=== PATIENT | female | born 1995 | race Caucasian/White ===

== ENCOUNTER 2022-04-26 05:31 | Inpatient (IN) ==
[2022-04-26] MEDS ORDERED: LACTATED RINGERS 250 ML IV ONE (05:54)
[2022-04-26] MEDS ORDERED: TRANEXAMIC ACID 1,000 MG in SODIUM CHLORIDE 0.9% 100 ML IV PRN (05:54)
[2022-04-26] MEDS ORDERED: METHYLERGONOVINE 0.2 MG/1 ML AMP IM PRN (05:54)
[2022-04-26] MEDS ORDERED: OXYTOCIN/LR 20 UNIT/1,000 ML BAG IV ONE ×3 (05:54→09:14)
[2022-04-26] MEDS ORDERED: ONDANSETRON 4 MG/2 ML VIAL IV PRN ×2 (05:54→09:14)
[2022-04-26] MEDS ORDERED: CARBOPROST TROMETHAMINE 250 MCG/ML AMP IM PRN (05:54)
[2022-04-26] MEDS ORDERED: miSOPROStoL 200 MCG TABLET RECTAL PRN (05:54)
[2022-04-26] MEDS ORDERED: CITRIC ACID/SODIUM CITRATE 30 ML UDCUP PO ONE (05:54)
[2022-04-26] MEDS ORDERED: FAMOTIDINE 20 MG/2 ML VIAL IV ONE (05:54)
[2022-04-26] MEDS ORDERED: LACTATED RINGERS 1,000 ML IV SCH ×2 (06:00)
[2022-04-26 06:30] LABS: Basophils % 0.3 % (0.0-0.8); Eosinophils # 0.1 10*3/uL (0.0-0.87); Eosinophils % 0.7 % (0.00-10.9); Hemoglobin 12.6 GM/DL (12.0-16.0); Immature Granulocytes % 0.9 %; Immature Granulocytes Absolute 0.08 #; Lymphocytes % 21.8 % (21.3-54.2); Mean Corpuscular Volume 85.3 FL (87-102); Mean Platelet Volume 10.5 FL (9.6-12.0); Monocytes # 0.9 10*3/uL (0.11-0.8); Monocytes % 9.4 % (1.7-12.7); Neutrophils % 66.9 % (38.7-73.9); Platelet Count 234 T/CUMM (130-400); Red Blood Count 4.22 MC/CUMM (3.8-5.5); Red Cell Distribution Width 12.9 % (9.3-17.3); White Blood Count 9.1 T/CUMM (4-12)
[2022-04-26] MEDS ORDERED: CLINDAMYCIN INJ 900 MG/50 ML PREMIX IV ONE (06:30)
[2022-04-26] MEDS ORDERED: hydrALAZINE 20 MG/1 ML VIAL IV ONE ×3 (06:33→07:00)
[2022-04-26] MEDS ORDERED: KETOROLAC 30 MG/1 ML VIAL ONE (06:33)
[2022-04-26] MEDS ORDERED: ONDANSETRON 4 MG/2 ML VIAL ONE (06:33)
[2022-04-26] MEDS ORDERED: ACETAMINOPHEN INJ 1,000 MG/100 ML VIAL IV ONE (06:33)
[2022-04-26] MEDS ORDERED: DEXAMETHASONE 4 MG/1 ML VIAL ONE (06:33)
[2022-04-26 06:45] LABS: INR 0.8; PT Patient Result 9.3 SECS (10.1-12.1); Partial Thromboplastin Time 26.2 SECS (23.7-32.9)
[2022-04-26] MEDS ORDERED: buprenorphine HCL 0.3 MG/ML VIAL ONE (06:51)
[2022-04-26 06:52] LABS: Alanine Aminotransferase 23 U/L (13-56); Albumin 2.9 G/DL (3.4-5.0); Alkaline Phosphatase 138 U/L (45-117); Aspartate Amino Transferase 22 U/L (0-37); Bilirubin,Total < 0.39 MG/DL (0.20-1.00); Blood Urea Nitrogen 13 MG/DL (7-18); Carbon Dioxide 22 MMOL/L (21-32); Chloride 108 MMOL/L (98-107); Glucose 91 MG/DL (74-106); Osmolality,Calculated 276.5 MOS/KG (273-304); Potassium 3.6 MMOL/L (3.5-5.1); Sodium 139 MMOL/L (136-145); Uric Acid 4.8 MG/DL (2.6-6.0)
[2022-04-26] MEDS ORDERED: TRANEXAMIC ACID 1,000 MG/10 ML VIAL ONE (07:13)
[2022-04-26] MEDS ORDERED: miSOPROStoL 200 MCG TABLET ONE (07:13)
[2022-04-26] MEDS ORDERED: CARBOPROST TROMETHAMINE 250 MCG/ML AMP IM ONE (07:14)
[2022-04-26] MEDS ORDERED: SODIUM CHLORIDE 0.9% 100 ML IV ONE (07:14)
[2022-04-26] MEDS ORDERED: PHENYLEPHRINE 1 MG/10 ML SYRINGE IV ONE ×5 (07:50→08:41)
[2022-04-26] MEDS ORDERED: LACTATED RINGERS 1,000 ML IV ONE (08:00)
[2022-04-26] MEDS ORDERED: MAGNESIUM SULF RIDER 4 GM/100 ML PREMIX IV ONE (08:05)
[2022-04-26] MEDS ORDERED: MAGNESIUM SULF DRIP 40 GM/1,000 ML ML IV SCH (08:30)
[2022-04-26] MEDS ORDERED: LIDOCAINE 2% 5 ML VIAL ONE (08:34)
[2022-04-26 08:36] LABS: Bacteria,Urine Occasional /HPF (Few); Mucus,Urine Occasional /LPF (Occasional); RBC,Urine <1 /HPF (0-4)
[2022-04-26 08:37] LABS: Bilirubin,Urine Negative (Negative); Blood, Urine Negative (Negative); Glucose,Urine (UA) Negative (Negative); Ketones,Urine 80 mg/dL (Negative); Nitrite,Urine Negative (Negative); Protein,Urine Trace mg/dL (Negative); Urine Appearance Clear (Clear); Urine Color Yellow (Yellow); Urine Urobilinogen 0.2 eU/dL (<2.0)
[2022-04-26 08:39] LABS: Protein/Creatinine Ratio,Urine 0.4 RATIO
[2022-04-26 08:47] LABS: Cord Venous Blood HCO3 15.4 MMOL/L; Cord Venous Blood PCO2 56.1 MMHG; Cord Venous Blood PO2 23.1
[2022-04-26 08:48] LABS: Cord Arterial Blood HCO3 13.5 MMOL/L
[2022-04-26] MEDS ORDERED: MEASLES/MUMPS/RUBELLA VACCINE 0.5 ML VIAL SUBCUT ONE (09:14)
[2022-04-26] MEDS ORDERED: LANOLIN 50% CREAM 0.3 OZ TUBE TOP PRN (09:14)
[2022-04-26] MEDS ORDERED: BENZOCAINE 20%/MENTHOL 0.5% SPRAY 56 GM CAN TOP PRN (09:14)
[2022-04-26] MEDS ORDERED: oxyCODONE/ACETAMINOPHEN 5-325 MG TABLET PO PRN ×2 (09:14)
[2022-04-26] MEDS ORDERED: WITCH HAZEL PADS 100/JAR TOP PRN (09:14)
[2022-04-26] MEDS ORDERED: RHO(D) IMMUNE GLOBULIN 300 MCG SYRINGE IM ONE (09:14)
[2022-04-26] MEDS ORDERED: BISACODYL 10 MG SUPP RECTAL PRN (09:14)
[2022-04-26] MEDS ORDERED: ACETAMINOPHEN 325 MG TABLET PO PRN (09:14)
[2022-04-26] MEDS ORDERED: DIPH/TET/ACEL PERT BOOSTER VACCINE 0.5 ML VIAL IM ONE ×2 (09:14→09:30)
[2022-04-26] MEDS ORDERED: HYDROCORTISONE 2.5% RECTAL CREAM 30 GM TUBE TOP PRN (09:14)
[2022-04-26] MEDS: METOPROLOL SUCCINATE XL 50 MG TABLET PO SCH ×2 (11:05→20:37)
[2022-04-26] MEDS ORDERED: hydrALAZINE 20 MG/1 ML VIAL ONE (13:08)
[2022-04-26] MEDS ORDERED: ACETAMINOPHEN 500 MG TABLET PO SCH (15:00)
[2022-04-26] MEDS ORDERED: KETOROLAC 30 MG/1 ML VIAL IV SCH (15:00)
[2022-04-26] MEDS: CLINDAMYCIN INJ 900 MG/50 ML PREMIX IV SCH (19:50)
[2022-04-26] MEDS: ACETAMINOPHEN 500 MG TABLET PO SCH (22:37)
[2022-04-26] MEDS: DOCUSATE SODIUM 100 MG CAPSULE PO SCH (22:37)
[2022-04-26] MEDS: KETOROLAC 30 MG/1 ML VIAL IV SCH (22:38)
[2022-04-27 01:24] LABS: Basophils % 0.2 % (0.0-0.8); Eosinophils % 0.1 % (0.00-10.9); Hematocrit 32.9 VOL% (35.7-47.0); Hemoglobin 11.6 GM/DL (12.0-16.0); Immature Granulocytes % 0.5 %; Immature Granulocytes Absolute 0.07 #; Lymphocytes # 1.9 10*3/uL (1.4-4.0); Lymphocytes % 12.6 % (21.3-54.2); Mean Corpuscular HGB Conc 35.3 GM/DL (32-36); Mean Corpuscular Volume 85.2 FL (87-102); Mean Platelet Volume 10.2 FL (9.6-12.0); Monocytes # 1.2 10*3/uL (0.11-0.8); Monocytes % 8.2 % (1.7-12.7); Neutrophils % 78.4 % (38.7-73.9); Platelet Count 229 T/CUMM (130-400); Red Blood Count 3.86 MC/CUMM (3.8-5.5); White Blood Count 14.8 T/CUMM (4-12)
[2022-04-27 01:56] LABS: Alanine Aminotransferase 22 U/L (13-56); Albumin 2.6 G/DL (3.4-5.0); Alkaline Phosphatase 123 U/L (45-117); Aspartate Amino Transferase 30 U/L (0-37); Bilirubin,Total < 0.39 MG/DL (0.20-1.00); Blood Urea Nitrogen 4 MG/DL (7-18); Calcium 7.9 MG/DL (8.5-10.1); Carbon Dioxide 22 MMOL/L (21-32); Chloride 105 MMOL/L (98-107); Glucose 75 MG/DL (74-106); Osmolality,Calculated 270.7 MOS/KG (273-304); Potassium 3.4 MMOL/L (3.5-5.1); Sodium 138 MMOL/L (136-145); Total Protein 5.9 G/DL (6.4-8.2)
[2022-04-27] MEDS: CLINDAMYCIN INJ 900 MG/50 ML PREMIX IV SCH (03:53)
[2022-04-27] MEDS: ACETAMINOPHEN 500 MG TABLET PO SCH (05:23)
[2022-04-27] MEDS: KETOROLAC 30 MG/1 ML VIAL IV SCH (05:23)
[2022-04-27] MEDS: DOCUSATE SODIUM 100 MG CAPSULE PO SCH ×2 (10:29→21:18)
[2022-04-27] MEDS: METOPROLOL SUCCINATE XL 50 MG TABLET PO SCH ×2 (10:29→21:16)
[2022-04-27] MEDS: IBUPROFEN 800 MG TABLET PO PRN (17:46)
[2022-04-27] MEDS ORDERED: ACETAMINOPHEN 500 MG TABLET PO SCH (22:00)
[2022-04-28] MEDS: IBUPROFEN 800 MG TABLET PO PRN ×3 (04:56→23:46)
[2022-04-28] MEDS: DOCUSATE SODIUM 100 MG CAPSULE PO SCH ×2 (09:56→21:17)
[2022-04-28] MEDS: METOPROLOL SUCCINATE XL 50 MG TABLET PO SCH ×2 (09:56→21:06)
[2022-04-29] MEDS: DOCUSATE SODIUM 100 MG CAPSULE PO SCH (09:22)
[2022-04-29] MEDS: METOPROLOL SUCCINATE XL 50 MG TABLET PO SCH (09:22)
[2022-04-29] MEDS: IBUPROFEN 800 MG TABLET PO PRN (09:37)
[2022-04-29 16:44] VITALS: BP 141/89
== END 2022-04-29 12:35 | disposition home or self-care (01) | DRG 786 ==
LOC: N.LD 05:31 → N.OB 04-27 12:14
PROVIDERS: ADMIT Specialist; ATTEND Specialist
PROC: LDCSECT (ICD-10-PCS; 2022-04-26 07:45)